=== PATIENT | male | born 1990 | race Caucasian/White ===

== ENCOUNTER 2022-09-08 16:31 | Emergency (ER) | payer SELFPAY ==
[2022-09-08] MEDS ORDERED: Famotidine 20 MG/2 ML SDV IVPUSH ONE (16:48)
[2022-09-08] MEDS ORDERED: diphenhydrAMINE 50 MG/ML SDV IVPUSH ONE (16:48)
[2022-09-08] MEDS ORDERED: methylPREDNISolone Sodium Succinate 125 MG/2 ML SDV IVPUSH ONE (16:48)
[2022-09-08] MEDS ORDERED: Famotidine 20 MG Tab PO ONE (17:08)
[2022-09-08] MEDS ORDERED: methylPREDNISolone Sodium Succinate 125 MG/2 ML SDV IM ONE (17:08)
[2022-09-08] MEDS ORDERED: diphenhydrAMINE 50 MG Cap PO ONE (17:08)
== END 2022-09-08 19:00 | disposition home or self-care (01) ==
LOC: MW.ED 16:31
DX: T78.40XA Allergy, unspecified, initial encounter (principal); B86 Scabies
CPT/HCPCS: 96372; 99283; A9270; J2930

== ENCOUNTER 2022-10-30 23:06 | Emergency (ER) | payer SELFPAY ==
[2022-10-31] MEDS ORDERED: Ibuprofen 600 MG Tab PO ONE (00:26)
== END 2022-10-31 01:51 | disposition home or self-care (01) ==
LOC: MW.ED 23:06
DX: S00.83XA Contusion of other part of head, initial encounter (principal); E11.9 Type 2 diabetes mellitus without complications; I10 Essential (primary) hypertension; F17.210 Nicotine dependence, cigarettes, uncomplicated; Y04.2XXA Assault by strike against or bumped into by another person, initial encounter
CPT/HCPCS: 70450; 72125; 73140; 99284; A9270

== ENCOUNTER 2022-11-10 23:11 | Emergency (ER) | payer SELFPAY ==
[2022-11-11] MEDS ORDERED: Sodium Chloride 0.9% 10 ML Syringe FLUSH PRN (00:20)
[2022-11-11] MEDS ORDERED: Sodium Chloride 0.9% 2.5 ML Syringe FLUSH PRN (00:20)
[2022-11-11] MEDS ORDERED: Sodium Chloride 0.9% 1,000 ML IV ONE ×2 (00:20→00:21)
[2022-11-11] MEDS ORDERED: LORazepam 2 MG/ML SDV IVPUSH ONE (00:21)
[2022-11-11 01:26] LABS: CARBON DIOXIDE,CO2 26.8 mmol/L (21.0-32.0); POTASSIUM,K 3.8 mmol/L (3.5-5.1)
== END 2022-11-11 04:08 | disposition left against medical advice (07) ==
LOC: MW.ED 23:11
DX: M62.82 Rhabdomyolysis (principal); F15.10 Other stimulant abuse, uncomplicated
CPT/HCPCS: 36415; 80053; 82550; 85025; 93005; 96361; 96374; 99284; J2060; J3490; J7030

== ENCOUNTER 2023-05-26 03:56 | Emergency (ER) | payer SELFPAY | END 2023-05-26 05:17 | disposition left against medical advice (07) | LOC: MW.ED 03:56 | DX: Z53.21 Procedure and treatment not carried out due to patient leaving prior to being seen by health care provider (principal) ==

== ENCOUNTER 2023-05-26 14:51 | Emergency (ER) | payer SELFPAY ==
[2023-05-26] MEDS ORDERED: Sodium Chloride 0.9% 1,000 ML IV STA (15:35)
[2023-05-26] MEDS ORDERED: Sodium Chloride 0.9% 10 ML Syringe FLUSH PRN (15:35)
[2023-05-26] MEDS ORDERED: Sodium Chloride 0.9% 2.5 ML Syringe FLUSH PRN (15:35)
[2023-05-26 16:00] LABS: BASOPHILS PERCENT AUTO 0.2 % (0.0-1.5); EOSINOPHILS ABSOLUTE AUTO 0.1 K/uL (0.0-0.7); EOSINOPHILS PERCENT AUTO 0.8 % (0.0-7.0); HEMATOCRIT 40.4 % (38.0-50.0); HEMOGLOBIN 14.4 g/dL (13.0-17.0); LYMPHOCYTES ABSOLUTE AUTO 1.2 K/uL (0.6-2.4); LYMPHOCYTES PERCENT AUTO 19.7 % (16.0-40.0); MEAN CORPUSCULAR HEMOGLOBIN 30.6 pg (27.0-32.0); MEAN CORPUSCULAR HGB CONC 35.6 g/dL (31.0-37.0); MEAN CORPUSCULAR VOLUME 85.8 fL (80.0-98.0); MONOCYTES ABSOLUTE AUTO 0.3 K/uL (0.0-0.8); MONOCYTES PERCENT AUTO 5.5 % (0.0-15.0); NEUTROPHILS ABSOLUTE AUTO 4.5 K/uL (1.4-5.7); NEUTROPHILS PERCENT AUTO 73.8 % (48.0-80.0); NRBC ABSOLUTE 0 K/uL; PLATELET COUNT,PLT 188 K/uL (150-400); RED BLOOD CELL COUNT 4.71 M/uL (4.50-5.90); WHITE BLOOD CELL COUNT,WBC 6.05 K/uL (4.0-11.0)
[2023-05-26 16:18] LABS: A/G RATIO 0.6 (0.9-1.6); ALBUMIN 3.1 g/dL (3.4-5.0); BILIRUBIN TOTAL 0.5 mg/dL (0.2-1.0); CALCIUM 8.4 mg/dL (8.5-10.1); CARBON DIOXIDE,CO2 23.9 mmol/L (21.0-32.0); EST CRCL DRUG DOSING (CG) 93.04 mL/min; POTASSIUM,K 3.5 mmol/L (3.5-5.1); PROTEIN TOTAL,TP 8.2 g/dL (6.4-8.2)
[2023-05-26] MEDS ORDERED: predniSONE 20 MG Tab PO STA (17:09)
[2023-05-26] MEDS ORDERED: Amoxicillin/Clavulanate K 875-125 MG Tab PO STA (17:09)
== END 2023-05-26 17:26 | disposition home or self-care (01) ==
LOC: MW.ED 14:51
DX: J02.0 Streptococcal pharyngitis (principal)
CPT/HCPCS: 36415; 71046; 80053; 85025; 86308; 87635; 87651; 96360; 99283; A9270; J3490; J7030; U0002